=== PATIENT | male | born 1940 | race Native Hawaiian/Other Pacific Islander ===

== ENCOUNTER 2023-12-14 14:51 | Inpatient (IN) | payer OTHER ==
[2023-12-14] MEDS ORDERED: ACETAMINOPHEN INJECTION 100 ML IVPB ONE (17:14)
[2023-12-14] MEDS ORDERED: PIPERACILLIN/TAZOB 4.5 GM 4.5 GM/100 ML BAG IVPB ONE (17:15)
[2023-12-14 17:17] LABS: VENOUS BASE EXCESS 7.9 mmol/L (-2-2); VENOUS O2 SATURATION 23.1 % (70-80); VENOUS PCO2 67.8 mmHg (38-52); VENOUS PH 7.35 (7.310-7.410)
[2023-12-14] MEDS: ACETAMINOPHEN 1000 MG/100 ML BAG IVPB ONE (17:45)
[2023-12-14 18:08] LABS: CHLORIDE 118 mmol/L (98-107); SODIUM 150 mmol/L (136-145)
[2023-12-14 18:11] LABS: ALBUMIN 2.1 g/dl (3.4-5.0); CALCIUM 8.7 mg/dL (8.5-10.1); CO2 33 mmol/L (21-32); GLUCOSE,RANDOM 105 mg/dL (74-106)
[2023-12-14 18:15] LABS: CREATININE 2.4 mg/dL (0.55-1.3); TOT PROT 7.9 g/dl (6.4-8.2)
[2023-12-14 18:16] LABS: HEMATOCRIT 26.2 % (35.4-49); HEMOGLOBIN 7.3 GM/dL (11.7-16.9); MCH 27.2 pg (25.7-33.7); MCHC 27.7 g/dl (32.0-35.9); MEAN CELL VOLUME 97.9 fl (80-96); MEAN PLT VOLUME 12.8 fl (7.5-11.1); PLATELET COUNT 243 10^3/uL (134-434); RBC 2.67 M/mm3 (4.00-5.60); RDW 19.8 % (11.9-15.9); WHITE BLOOD COUNT 18.8 K/mm3 (4.0-10.0)
[2023-12-14 18:19] LABS: N-TERMINAL BNP 7555.4 pg/ml (5-450)
[2023-12-14] MEDS: PIPERACILLIN/TAZOBACTAM 4.5 GM VIAL IVPB ONE (18:30)
[2023-12-14 18:40] LABS: BASO % 0.4 % (0-2.0); EOS % 2.2 % (0-4.5); HEMATOCRIT 33.5 % (35.4-49); HEMOGLOBIN 10.5 GM/dL (11.7-16.9); LYMPH % 14.2 % (8-40); MCH 27.6 pg (25.7-33.7); MCHC 31.3 g/dl (32.0-35.9); MEAN CELL VOLUME 88.1 fl (80-96); MEAN PLT VOLUME 11.8 fl (7.5-11.1); MONO % 4.9 % (3.8-10.2); NEUT % 78.3 % (42.8-82.8); PLATELET COUNT 216 10^3/uL (134-434); RDW 17.8 % (11.9-15.9); WHITE BLOOD COUNT 14.1 K/mm3 (4.0-10.0)
[2023-12-14 19:01] LABS: ANISOCYTOSIS 2+; MACROCYTOSIS 0; TARGET CELLS 1+
[2023-12-14 19:12] LABS: CALCIUM 8.9 mg/dL (8.5-10.1); CHLORIDE 121 mmol/L (98-107); POTASSIUM 4.6 mmol/L (3.5-5.1); SODIUM 160 mmol/L (136-145)
[2023-12-14 19:13] LABS: ANION GAP 4 mmol/L (4-13); CO2 35 mmol/L (21-32); GLUCOSE,RANDOM 122 mg/dL (74-106)
[2023-12-14 19:16] LABS: CREATININE 2.4 mg/dL (0.55-1.3); SGOT/AST 24 U/L (15-37); SGPT/ALT 25 U/L (13-61)
[2023-12-14 19:18] LABS: BILIRUBIN,TOTAL 0.3 mg/dL (0.2-1); TOT PROT 6.4 g/dl (6.4-8.2)
[2023-12-14 19:19] LABS: ALK PHOS 90 U/L (45-117)
[2023-12-14 19:42] LABS: ALBUMIN 2.6 g/dl (3.4-5.0); BLOOD UREA NITROGEN 122.1 mg/dL (7-18)
[2023-12-14] MEDS ORDERED: VANCOMYCIN 1 GRAM (PRE-DOCKED) 1,000 MG/250 ML BAG IVPB ONE (19:52)
[2023-12-14] MEDS: VANCOMYCIN 1,000 MG in DEXTROSE 5%-WATER - 250 ML IVPB ONE (20:05)
[2023-12-14] MEDS: SODIUM CHLORIDE 0.9% 500 ML INFUS.BAG IV ONE (20:05)
[2023-12-14] MEDS ORDERED: SENNOSIDES 8.6MG TABLET (FP) PO PRN (23:22)
[2023-12-15] MEDS: DEXTROSE 5%-0.45% SALINE 1,000 ML IV SCH (04:13)
[2023-12-15 07:21] LABS: BASO % 0.4 % (0-2.0); EOS % 4.4 % (0-4.5); HEMATOCRIT 32.6 % (35.4-49); HEMOGLOBIN 10.1 GM/dL (11.7-16.9); LYMPH % 12.4 % (8-40); MCH 27.6 pg (25.7-33.7); MCHC 31.1 g/dl (32.0-35.9); MEAN CELL VOLUME 88.5 fl (80-96); MONO % 4.5 % (3.8-10.2); NEUT % 78.3 % (42.8-82.8); PLATELET COUNT 211 10^3/uL (134-434); RBC 3.68 M/mm3 (4.00-5.60); RDW 18.1 % (11.9-15.9); WHITE BLOOD COUNT 11.4 K/mm3 (4.0-10.0)
[2023-12-15 07:28] LABS: CHLORIDE 121 mmol/L (98-107); POTASSIUM 4.2 mmol/L (3.5-5.1)
[2023-12-15 07:32] LABS: ALBUMIN 2.4 g/dl (3.4-5.0); CALCIUM 8.8 mg/dL (8.5-10.1); CO2 34 mmol/L (21-32); GLUCOSE,RANDOM 118 mg/dL (74-106); MAGNESIUM 3.2 mg/dL (1.8-2.4)
[2023-12-15 07:35] LABS: CREATININE 2.4 mg/dL (0.55-1.3); PHOSPHOROUS 3.9 mg/dL (2.5-4.9); SGOT/AST 16 U/L (15-37); SGPT/ALT 22 U/L (13-61)
[2023-12-15 07:37] LABS: BILIRUBIN,TOTAL 0.4 mg/dL (0.2-1); TOT PROT 6.3 g/dl (6.4-8.2)
[2023-12-15 07:39] LABS: ALK PHOS 90 U/L (45-117)
[2023-12-15 07:40] LABS: ANION GAP 6 mmol/L (4-13); BLOOD UREA NITROGEN 110.1 mg/dL (7-18); SODIUM 160 mmol/L (136-145)
[2023-12-15] MEDS ORDERED: SENNOSIDES 8.8 MG/5 ML SYRUP GT PRN (07:54)
[2023-12-15] MEDS ORDERED: SENNOSIDES 8.8 MG/5 ML SYRUP PO PRN (07:54)
[2023-12-15] MEDS ORDERED: MICONAZOLE NITRATE 28 GM TUBE TP SCH (10:00)
[2023-12-15] MEDS: ASPIRIN 81 MG CHEWABLE TABLETS NGT SCH (10:13)
[2023-12-15] MEDS: ZINC SULFATE 220 MG CAPSULE (FP) NGT SCH (10:13)
[2023-12-15] MEDS: FAMOTIDINE 20 MG TABLET NGT SCH (10:14)
[2023-12-15] MEDS ORDERED: ALBUTEROL SO4 2.5/IPRATROPIUM 0.5 INH SOL 3 ML VIAL.NEB. NEB PRN (11:42)
[2023-12-15] MEDS ORDERED: FAMOTIDINE 20 MG TABLET PEG SCH (12:19)
[2023-12-15] MEDS: ALBUTEROL SO4 2.5/IPRATROPIUM 0.5 INH SOL 3 ML VIAL.NEB. NEB SCH (12:28)
[2023-12-15] MEDS: MICONAZOLE NITRATE 28 GM TUBE TP SCH (17:54)
[2023-12-15] MEDS: PIPERACILLIN/TAZOB 2.25 GM 2.25 GM in DEXTROSE 5%-WATER - 50 ML IVPB SCH (17:54)
[2023-12-15] MEDS ORDERED: RIVAROXABAN 20 MG TABLET NGT SCH (22:00)
[2023-12-15 22:06] LABS: POTASSIUM 3.8 mmol/L (3.5-5.1)
[2023-12-15 22:07] LABS: CALCIUM 8.4 mg/dL (8.5-10.1)
[2023-12-15] MEDS: RIVAROXABAN 15 MG TABLET PEG SCH (22:57)
[2023-12-15] MEDS: LATANOPROST 0.005% OPHTH SOLN 2.5ML BOTTLE OU SCH (23:45)
[2023-12-16] MEDS: DEXTROSE 5%-0.45% SALINE 1,000 ML IV SCH ×2 (02:26→04:26)
[2023-12-16] MEDS: LEVOTHYROXINE NA 50 MCG TABLET (FP) PEG SCH (07:14)
[2023-12-16 07:17] LABS: BASO % 0.6 % (0-2.0); EOS % 5.4 % (0-4.5); HEMATOCRIT 30.2 % (35.4-49); HEMOGLOBIN 9.4 GM/dL (11.7-16.9); LYMPH % 13.8 % (8-40); MCH 27.4 pg (25.7-33.7); MEAN CELL VOLUME 88.2 fl (80-96); MEAN PLT VOLUME 11.1 fl (7.5-11.1); MONO % 5.6 % (3.8-10.2); NEUT % 74.6 % (42.8-82.8); PLATELET COUNT 193 10^3/uL (134-434); RBC 3.43 M/mm3 (4.00-5.60); RDW 17.6 % (11.9-15.9); WHITE BLOOD COUNT 9.3 K/mm3 (4.0-10.0)
[2023-12-16 08:24] LABS: BLOOD UREA NITROGEN 87.2 mg/dL (7-18); CALCIUM 8.4 mg/dL (8.5-10.1); CREATININE 2.1 mg/dL (0.55-1.3); POTASSIUM 3.8 mmol/L (3.5-5.1)
[2023-12-16] MEDS ORDERED: FAMOTIDINE 20 MG TABLET PEG SCH (10:00)
[2023-12-16] MEDS: ASPIRIN 81 MG CHEWABLE TABLETS PEG SCH (10:29)
[2023-12-16] MEDS: ZINC SULFATE 220 MG CAPSULE (FP) PEG SCH (10:30)
[2023-12-16] MEDS: FAMOTIDINE 20 MG/2.5 ML ORAL LIQUID PEG SCH (10:30)
[2023-12-16] MEDS: methylPREDNISolone NA SUCC 40 MG/1 ML VIAL IVPUSH SCH (15:21)
[2023-12-16] MEDS: AMINO ACIDS/PROTEIN HYDROLYS 30 ML LIQUID.PKT PEG SCH (18:34)
[2023-12-17 15:18] VITALS: BMI 18.1
[2023-12-18 07:26] LABS: BASO % 0.1 % (0-2.0); EOS % 0.1 % (0-4.5); HEMATOCRIT 26.6 % (35.4-49); HEMOGLOBIN 8.2 GM/dL (11.7-16.9); MCH 26.8 pg (25.7-33.7); MCHC 30.9 g/dl (32.0-35.9); MEAN CELL VOLUME 86.9 fl (80-96); MEAN PLT VOLUME 11.1 fl (7.5-11.1); MONO % 5.5 % (3.8-10.2); NEUT % 85.3 % (42.8-82.8); PLATELET COUNT 192 10^3/uL (134-434); RBC 3.07 M/mm3 (4.00-5.60); RDW 17.1 % (11.9-15.9); WHITE BLOOD COUNT 12.8 K/mm3 (4.0-10.0)
[2023-12-18 07:34] LABS: POTASSIUM 3.8 mmol/L (3.5-5.1)
[2023-12-18 07:41] LABS: BLOOD UREA NITROGEN 77.5 mg/dL (7-18)
[2023-12-18 07:42] LABS: ALBUMIN 2.2 g/dl (3.4-5.0); CREATININE 1.8 mg/dL (0.55-1.3)
[2023-12-18 07:43] LABS: BILIRUBIN,TOTAL 0.3 mg/dL (0.2-1); TOT PROT 5.3 g/dl (6.4-8.2)
[2023-12-19 07:21] LABS: POTASSIUM 3.9 mmol/L (3.5-5.1)
[2023-12-19 07:23] LABS: BASO % 0.1 % (0-2.0); EOS % 0.3 % (0-4.5); HEMATOCRIT 28.2 % (35.4-49); LYMPH % 11.7 % (8-40); MCH 27.5 pg (25.7-33.7); MCHC 31.8 g/dl (32.0-35.9); MEAN CELL VOLUME 86.3 fl (80-96); MEAN PLT VOLUME 10.5 fl (7.5-11.1); MONO % 6.2 % (3.8-10.2); NEUT % 81.7 % (42.8-82.8); PLATELET COUNT 198 10^3/uL (134-434); RBC 3.26 M/mm3 (4.00-5.60); WHITE BLOOD COUNT 10.4 K/mm3 (4.0-10.0)
[2023-12-19 07:29] LABS: CALCIUM 8.3 mg/dL (8.5-10.1)
[2023-12-19 07:30] LABS: BLOOD UREA NITROGEN 76.8 mg/dL (7-18)
[2023-12-19 07:33] LABS: CREATININE 1.8 mg/dL (0.55-1.3)
[2023-12-19] MEDS ORDERED: PIPERACILLIN/TAZOB 3.375 GM 3.375 GM in DEXTROSE 5%-WATER - 50 ML IVPB SCH (10:30)
[2023-12-19] MEDS: PIPERACILLIN/TAZOB 3.375 GM 3.375 GM in DEXTROSE 5%-WATER - 50 ML IVPB SCH (16:47)
[2023-12-20 07:04] LABS: EOS % 0.5 % (0-4.5); HEMATOCRIT 28.2 % (35.4-49); HEMOGLOBIN 8.9 GM/dL (11.7-16.9); LYMPH % 9.9 % (8-40); MCH 27.2 pg (25.7-33.7); MCHC 31.4 g/dl (32.0-35.9); MEAN CELL VOLUME 86.5 fl (80-96); MEAN PLT VOLUME 10.7 fl (7.5-11.1); MONO % 5.6 % (3.8-10.2); PLATELET COUNT 200 10^3/uL (134-434); RBC 3.26 M/mm3 (4.00-5.60); RDW 17.3 % (11.9-15.9); WHITE BLOOD COUNT 13.9 K/mm3 (4.0-10.0)
[2023-12-20 07:15] LABS: POTASSIUM 4.1 mmol/L (3.5-5.1)
[2023-12-20 07:17] LABS: CALCIUM 8.3 mg/dL (8.5-10.1)
[2023-12-20 07:18] LABS: BLOOD UREA NITROGEN 76.2 mg/dL (7-18); MAGNESIUM 2.5 mg/dL (1.8-2.4)
[2023-12-20 07:21] LABS: CREATININE 1.8 mg/dL (0.55-1.3)
[2023-12-20] MEDS: SODIUM CHLORIDE 0.9% 500 ML INFUS.BAG IV ONE (15:15)
[2023-12-21 07:06] LABS: BASO % 0.1 % (0-2.0); EOS % 1.1 % (0-4.5); HEMATOCRIT 28.9 % (35.4-49); HEMOGLOBIN 8.9 GM/dL (11.7-16.9); LYMPH % 13.1 % (8-40); MCH 26.8 pg (25.7-33.7); MCHC 30.9 g/dl (32.0-35.9); MEAN CELL VOLUME 86.7 fl (80-96); MONO % 6.2 % (3.8-10.2); NEUT % 79.5 % (42.8-82.8); PLATELET COUNT 211 10^3/uL (134-434); RBC 3.34 M/mm3 (4.00-5.60); WHITE BLOOD COUNT 11.5 K/mm3 (4.0-10.0)
[2023-12-21 07:46] LABS: BLOOD UREA NITROGEN 73.7 mg/dL (7-18); CALCIUM 7.7 mg/dL (8.5-10.1); CREATININE 1.8 mg/dL (0.55-1.3); POTASSIUM 4.2 mmol/L (3.5-5.1)
[2023-12-21 14:55] LABS: EPI CELLS 16 /uL (0-25.1); HYALINE CASTS 0 /uL (0-3.1); PH,URINE 5.5 (5.0-8.0); URINE APPEARANCE CLEAR; URINE BACTERIA 20 /uL (0-1359); URINE BILIRUBIN NEGATIVE (NEGATIVE); URINE COLOR YELLOW; URINE GLUCOSE (UA) 2+ (NEGATIVE); URINE KETONE NEGATIVE (NEGATIVE); URINE LEUK ESTERASE 1+ (NEGATIVE); URINE NITRITE NEGATIVE (NEGATIVE); URINE PROTEIN 1+ (NEGATIVE); URINE UROBILINOGEN 0.2 mg/dL (0.2-1.0); URINE WBC 12 /uL (0-25.8)
[2023-12-22 06:52] LABS: HEMATOCRIT 28.7 % (35.4-49); HEMOGLOBIN 9.3 GM/dL (11.7-16.9); MCH 27.6 pg (25.7-33.7); MCHC 32.4 g/dl (32.0-35.9); MEAN CELL VOLUME 85.2 fl (80-96); MEAN PLT VOLUME 10.1 fl (7.5-11.1); PLATELET COUNT 221 10^3/uL (134-434); RBC 3.37 M/mm3 (4.00-5.60); RDW 17.3 % (11.9-15.9); WHITE BLOOD COUNT 9.6 K/mm3 (4.0-10.0)
[2023-12-22 07:11] LABS: POTASSIUM 4.4 mmol/L (3.5-5.1)
[2023-12-22 07:18] LABS: CREATININE 1.9 mg/dL (0.55-1.3)
[2023-12-22] MEDS: AMINO ACIDS/PROTEIN HYDROLYS 30 ML LIQUID.PKT PEG SCH (10:05)
[2023-12-22 11:12] LABS: ANISOCYTOSIS 1+; MACROCYTOSIS 0
[2023-12-23 07:17] LABS: BASO % 0.1 % (0-2.0); EOS % 9.5 % (0-4.5); HEMATOCRIT 30.1 % (35.4-49); HEMOGLOBIN 9.7 GM/dL (11.7-16.9); LYMPH % 13.3 % (8-40); MCH 27.6 pg (25.7-33.7); MCHC 32.2 g/dl (32.0-35.9); MEAN CELL VOLUME 85.6 fl (80-96); MEAN PLT VOLUME 10.1 fl (7.5-11.1); NEUT % 71.1 % (42.8-82.8); PLATELET COUNT 239 10^3/uL (134-434); RBC 3.51 M/mm3 (4.00-5.60); RDW 16.9 % (11.9-15.9); WHITE BLOOD COUNT 10.8 K/mm3 (4.0-10.0)
[2023-12-23] MEDS: METOPROLOL TARTRATE 25 MG TABLET (FP) PO SCH (09:14)
[2023-12-23] MEDS: BACITRACIN ZINC 15 GM TUBE TOPICAL OINTMENT TP SCH (15:48)
[2023-12-23] MEDS ORDERED: BACITRACIN ZINC 15 GM TUBE TOPICAL OINTMENT TP SCH (22:00)
[2023-12-24 10:14] VITALS: BP 127/82; PULSE 95; RESP 16; TEMP 97.2
== END 2023-12-24 10:17 | disposition home or self-care (01) | DRG 871 ==
LOC: JER 14:51 → JERBED 18:05 → J4W 12-15 02:27
PROVIDERS: ADMIT Internal Medicine; ATTEND Nurse Practitioner Family
DX: A41.52 Sepsis due to Pseudomonas (principal); G93.41 Metabolic encephalopathy; J15.1 Pneumonia due to Pseudomonas; J96.21 Acute and chronic respiratory failure with hypoxia; J96.22 Acute and chronic respiratory failure with hypercapnia; E87.0 Hyperosmolality and hypernatremia; N17.9 Acute kidney failure, unspecified; I24.89 Other forms of acute ischemic heart disease; I50.32 Chronic diastolic (congestive) heart failure; R64 Cachexia; Z68.1 Body mass index [BMI] 19.9 or less, adult; E46 Unspecified protein-calorie malnutrition; R65.20 Severe sepsis without septic shock; I11.0 Hypertensive heart disease with heart failure; Z93.1 Gastrostomy status
CPT/HCPCS: 0241U-QW; 36415; 71045-TC-FY; 71250-TC; 80048; 80053; 81003; 82550; 82553; 82803; 82962; 83605; 83735; 83880; 84100; 84484; 85025; 86850; 86900; 86901; 87040; 87070; 87081; 87086; 87186; 87205; 87899; 93005; 93010; 93306-TC; 94640; 97163-GP; 99285-25; G0480; J0131